=== PATIENT | female | born 1940 | race Caucasian/White ===

== ENCOUNTER → 2024-05-29 11:15 | Outpatient (REF) | payer OTHER, SELFPAY | LOC: RAD 11:15 | PROVIDERS: ATTENDING PHYSICIAN Internal Medicine Hematology & Oncology; FAMILY PHYSICIAN Family Medicine | DX: I82.890 Acute embolism and thrombosis of other specified veins (principal) | CPT/HCPCS: 93971 ==

== ENCOUNTER → 2024-07-28 11:00 | Outpatient (REF) | payer OTHER, SELFPAY | LOC: HWRCS 11:00 | PROVIDERS: ATTENDING PHYSICIAN Nurse Practitioner; FAMILY PHYSICIAN Family Medicine | DX: R06.09 Other forms of dyspnea (principal) | CPT/HCPCS: 71046; 93306 ==

== ENCOUNTER → 2024-09-05 08:50 | Outpatient (REF) | payer OTHER, SELFPAY | LOC: RSP 08:50 | PROVIDERS: ATTENDING PHYSICIAN Family Medicine | DX: R06.02 Shortness of breath (principal) | CPT/HCPCS: 94727; 94729; 88738; 94060 ==